=== PATIENT | male | born 1990 | race Caucasian/White ===

== ENCOUNTER 2023-07-03 18:43 | Emergency (ER) | payer OTHER, SELFPAY ==
[2023-07-03 19:05] VITALS: BP 139/89; PULSE 90; RESP 14; TEMP 36.7; O2SAT 96; BMI 38.0
[2023-07-03 19:20] LABS: MANUAL DIFF FLAG NO
[2023-07-03 19:28] LABS: Basophils Percent Auto 0.4 % (0-2); Eosinophils Percent Auto 0.3 % (0-4); Hematocrit 41.1 % (42.0-52.0); Imm Gran Abs Auto 0.01 X10*3/uL (0.00-0.03); Imm Gran Pct Auto 0.1 % (0.0-0.4); Lymphocytes Absolute Auto 1.2 X10*3/uL (1.2-4.9); Lymphocytes Percent Auto 15.3 % (20-40); Mean Corpuscular HGB Conc 34.1 g/dl (31.0-36.0); Mean Corpuscular Hemoglobin 30.6 pg (27.0-33.0); Mean Corpuscular Volume 89.7 fL (80.0-98.0); Mean Platelet Volume 10.4 fL (9.4-12.4); Monocytes Absolute Auto 0.6 X10*3/uL (0.1-1.2); Monocytes Percent Auto 7.4 % (2-11); Neutrophils Absolute Auto 5.9 x10*3/uL (2.0-8.3); Neutrophils Percent Auto 76.5 % (45-73); Platelet Count 247 X10*3/uL (160-400); Red Blood Count 4.58 X10*6/uL (4.60-5.80); Red Cell Distribution Width 12.9 % (11.0-16.0); White Blood Count 7.7 X10*3/uL (4.8-10.8)
[2023-07-03 19:43] LABS: Alanine Aminotransferase 23 U/L (0-40); Albumin Level 4.3 g/dL (3.5-5.0); Alkaline Phosphatase 73 U/L (39-117); Anion Gap 13 (12-20); Aspartate Amino Transferase 23 U/L (5-37); Bilirubin Total 0.4 mg/dL (0.0-1.0); Blood Urea Nitrogen 11 mg/dL (9-16); Calcium 9.6 mg/dL (8.4-10.2); Carbon Dioxide 26 mmol/L (22-29); Chloride 106 mmol/L (96-108); Creatinine Clr Calc Pharmacy 132.6; Estimated Glomerular Filt Rate > 60; Glucose Random 109 mg/dL (60-115); Potassium 3.7 mmol/L (3.3-5.1); Sodium 141 mmol/L (135-145); Total Protein 7.2 g/dL (6.5-8.0)
--- NOTE | 2023-07-03 19:48 | PC.NURSE ---
Patient is alert and oriented x5, VSS Patient denies any pain. Patient reports intermittent confusion and weakness. Labs drawn at triage, patient changed in a hospital attire, call parsons placed within patient's reach. Patient awaiting eval by ED provider.
--- NOTE | 2023-07-03 20:12 | ED.GENADULT ---
HPI - General Adult General Chief complaint: General Medical Stated complaint: confused, out of body experience, near syncope Time Seen by Provider: 07/03/23 19:58 Source: patient Mode of arrival: ambulatory Limitations: no limitations History of Present Illness HPI narrative: Patient with history of undiagnosed social anxiety/depression with strong family history of same in siblings and other uncles for last 2 weeks with feeling more anxious with poor sleep has not seen any psychiatrist denied any SI no hallucinations patient treated for diverticulitis 4 weeks ago feeling that after taking the antibiotic has more anxiety and symptoms Related Data Allergies Allergy/AdvReac Type Severity Reaction Status Date / Time Seasonal Allergies Allergy Sneezing Verified 07/03/23 19:37 Review of Systems Review of Systems: Yes all other systems are reviewed and are negative [facility] Social History Social History Alcohol intake: current Alcohol intake frequency: a few times a week Alcohol type: hard liquor Smoked in Last 30 Days: No Use of substances other than those prescribed or required for medical reasons: No Advance Directives: No Advance Directives Information Provided: No Physical Exam ED Vital Signs: Vital Signs - 24 hr 07/03/23 19:05 07/03/23 20:26 Temperature 98.1 F 97.7 F Pulse Rate 90 80 Respiratory Rate 14 18 Blood Pressure 139/89 134/89 Pulse Oximetry 96 95 Oxygen Delivery Method Room Air Room Air BMI result Body Mass Index 38.0 Appearance: Alert. Oriented X3. No acute distress. Anxious Eyes: PERRLA, No Nystagmus ENT: Pharynx normal. Oral Mucosa moist Neck: Normal inspection. Neck supple. CVS: Normal heart rate and rhythm. Pulses normal. Respiratory: No respiratory distress. Equal air entry bilateral, no wheezing/rales/rhonchi Abdomen: Soft and nontender. Bowel sounds are present, no mass palpable, no CVA tenderness Skin: Skin warm and dry. Normal skin color. Normal skin turgor. Extremities: No lower extremity edema. No calf tenderness psych: Anxious denies any SI or HI no hallucination or delusion Neuro: Oriented X 3. No motor deficit. No sensory deficit.No cerebellar signs , cranial nerves II-XII intact Medications Administered Discontinued Medications Generic Name Dose Route Start Last Admin Trade Name Freq PRN Reason Stop Dose Admin Lorazepam 1 mg 07/03/23 20:24 07/03/23 20:40 Lorazepam 1 Mg Tablet PO 07/03/23 20:25 Not Given ONCE ONE Medical Decision Making Medical Decision Making [facility] Narrative: Patient's symptoms likely with anxiety /social anxiety and mixed depression refused take any medication the ER will follow with psychiatrist Differential Diagnosis Differential Diagnoses: The differential diagnosis associated with the presentation includes Depression/anxiety/bipolar Lab Data [facility] Lab Attestation statement: I reviewed the patient's lab results. 07/03/23 19:16 07/03/23 19:16 Labs: Lab Results 07/03/23 07/03/23 Range/Units 19:16 19:16 WBC 7.7 (4.8-10.8) X10*3/uL RBC 4.58 L (4.60-5.80) X10*6/uL Hgb 14.0 (14.0-18.0) g/dl Hct 41.1 L (42.0-52.0) % MCV 89.7 (80.0-98.0) fL MCH 30.6 (27.0-33.0) pg MCHC 34.1 (31.0-36.0) g/dl RDW 12.9 (11.0-16.0) % Plt Count 247 (160-400) X10*3/uL MPV 10.4 (9.4-12.4) fL Immature Gran % (Auto) 0.1 (0.0-0.4) % Neut % (Auto) 76.5 H (45-73) % Lymph % (Auto) 15.3 L (20-40) % [place] % (Auto) 7.4 (2-11) % Eos % (Auto) 0.3 (0-4) % Baso % (Auto) 0.4 (0-2) % Lymph # (Auto) 1.2 (1.2-4.9) X10*3/uL [place] # (Auto) 0.6 (0.1-1.2) X10*3/uL Eos # (Auto) 0.0 (0.0-0.4) X10*3/uL Baso # (Auto) 0.0 (0.0-0.2) X10*3/uL Abs Immat Gran (auto) 0.01 (0.00-0.03) X10*3/uL Absolute Neuts (auto) 5.9 (2.0-8.3) x10*3/uL Absolute Nucleated RBC 0.000 (0.0-0.012) X10*3/uL Nucleated RBC % (auto) 0.0 (0.0-0.2) /100WBC Sodium 141 (135-145) mmol/L Potassium 3.7 (3.3-5.1) mmol/L Chloride 106 (96-108) mmol/L Carbon Dioxide 26 (22-29) mmol/L Anion Gap 13 (12-20) BUN 11 (9-16) mg/dL Creatinine 1.02 (0.5-1.4) mg/dL Estim Creat Clear Calc 132.6 Estimated GFR > 60 Random Glucose 109 (60-115) mg/dL Calcium 9.6 (8.4-10.2) mg/dL Total Bilirubin 0.4 (0.0-1.0) mg/dL AST 23 (5-37) U/L ALT 23 (0-40) U/L Alkaline Phosphatase 73 (39-117) U/L Total Protein 7.2 (6.5-8.0) g/dL Albumin 4.3 (3.5-5.0) g/dL Discharge Plan Discharge Clinical Impression: Anxiety and depression Patient Disposition: Home, Self-Care Instructions: Generalized Anxiety Disorder (ED) Additional Instructions: Relax follow-up with therapist and psychiatrist for further evaluation management Referrals: Rhys Garnett MD [Physician] - 1 week
[2023-07-03 20:26] VITALS: BP 134/89; PULSE 80; RESP 18; TEMP 36.5; O2SAT 95
--- NOTE | 2023-07-03 20:27 | MHC.EDTECH ---
Patient came in from waiting area,changed into hospital attire,hourly rounds and vitals taken.Patient is resting at this time and call parsons within reach
--- NOTE | 2023-07-03 20:41 | PC.NURSE ---
Patient refused to take Lorazepam 1 mg PO.
== END 2023-07-03 20:46 | disposition home or self-care (01) ==
PROVIDERS: Emergency Provider Internal Medicine
DX: F41.1 Generalized anxiety disorder (principal); F33.1 Major depressive disorder, recurrent, moderate; Z79.899 Other long term (current) drug therapy
CPT/HCPCS: 36415; 80053; 85025; 99284